=== PATIENT | male | born 1975 | race Caucasian/White ===

== ENCOUNTER → 2021-04-25 09:55 | Outpatient (CLI) | payer BC, SELFPAY ==
--- NOTE | ~2021-04-25 | XR_ITS ---
EXAMINATION: XR shoulder LT min 2V DATE: 04/25/2021 10:36 INDICATION: Left shoulder pain. TECHNIQUE: 4 views of left shoulder were obtained. COMPARISON: None. FINDINGS: Bone alignment is normal. No fracture. There is moderate osteoarthritis of glenohumeral ally nt and mild osteoarthritis of acromioclavicular joint. IMPRESSION: 1. Polyarticular osteoarthritis. Reviewed, dictated and finalized at location A.
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
== END ==
PROVIDERS: PCP Physician Assistant; Visit Provider Physician Assistant
DX: M19.012 Primary osteoarthritis, left shoulder (principal); M47.812 Spondylosis without myelopathy or radiculopathy, cervical region; R07.81 Pleurodynia
CPT/HCPCS: 71046; 71100; 72040; 73030